=== PATIENT | female | born 1965 | race Caucasian/White ===

== ENCOUNTER 2017-05-25 10:33 | Emergency (ER) | payer MEDICAID ==
[~2017-05-25] VITALS: Ht 170.2 cm; Wt 70.3 kg
[2017-05-25 11:03] VITALS: BP 141/84
== END 2017-05-25 11:30 | disposition home or self-care (01) ==
LOC: ER 10:33
DX: M54.31 Sciatica, right side (principal); F17.210 Nicotine dependence, cigarettes, uncomplicated; Z90.710 Acquired absence of both cervix and uterus; Z88.0 Allergy status to penicillin

== ENCOUNTER 2017-08-03 10:48 | Emergency (ER) | payer MEDICAID, OTHER ==
[~2017-08-03] VITALS: Ht 170.2 cm; Wt 69.9 kg
[2017-08-03 10:59] VITALS: BP 116/91
[2017-08-03] MEDS ORDERED: KETOROLAC TROMETH 60MG/2ML VIAL IM ONE (11:45)
== END 2017-08-03 12:26 | disposition home or self-care (01) ==
LOC: ER 10:48
DX: S46.912A Strain of unspecified muscle, fascia and tendon at shoulder and upper arm level, left arm, initial encounter (principal); F17.210 Nicotine dependence, cigarettes, uncomplicated; Z88.0 Allergy status to penicillin; Z90.710 Acquired absence of both cervix and uterus; X50.3XXA Overexertion from repetitive movements, initial encounter; Y93.89 Activity, other specified; Y92.89 Other specified places as the place of occurrence of the external cause; Y99.8 Other external cause status
CPT/HCPCS: 73030; 96372; 99284; J1885

== ENCOUNTER 2017-09-29 15:01 | Emergency (ER) | payer OTHER ==
[~2017-09-29] VITALS: Ht 170.2 cm; Wt 68.5 kg
[2017-09-29 15:24] VITALS: BP 137/80
[2017-09-29] MEDS ORDERED: KETOROLAC TROMETH 60MG/2ML VIAL IM ONE (15:45)
== END 2017-09-29 16:04 | disposition home or self-care (01) ==
LOC: ER 15:01
DX: F41.1 Generalized anxiety disorder (principal); M54.5 Low back pain; F17.210 Nicotine dependence, cigarettes, uncomplicated; Z88.0 Allergy status to penicillin; Z90.710 Acquired absence of both cervix and uterus
CPT/HCPCS: 93005; 96372; 99284; J1885

== ENCOUNTER 2019-03-28 15:06 | Emergency (ER) | payer MEDICAID ==
[~2019-03-28] VITALS: Ht 167.6 cm; Wt 67.6 kg
[~2019-03-28 15:06] MED LIST: HYDR-4833 PO; LEVO500T21 PO
[2019-03-28 15:25] VITALS: BP 142/77
== END 2019-03-28 17:20 | disposition left against medical advice (07) ==
LOC: ER 15:06
DX: M54.5 Low back pain (principal); Z53.21 Procedure and treatment not carried out due to patient leaving prior to being seen by health care provider

== ENCOUNTER 2023-08-09 11:00 | Emergency (ER) | payer MEDICAID ==
[~2023-08-09] VITALS: Ht 170.2 cm; Wt 68.4 kg
[~2023-08-09 11:00] MED LIST changes: -LEVO500T21 PO; +LEVO500T31 PO
[2023-08-09 11:44] LABS: Basophils # (auto) 0 10 ^3/uL (0-0.2); Basophils % (auto) 0.3 % (0.0-2.0); Eosinophils # (auto) 0.1 10 ^3/uL (0-0.8); Eosinophils % (auto) 0.6 % (0.0-7.0); Hematocrit 41.3 % (36.0-46.0); Hemoglobin 13.9 g/dL (12.2-16.2); Lymphocytes # (auto) 1.4 10 ^3/uL (0.4-5.4); Lymphocytes % (auto) 16.7 % (10.0-50.0); Mean Corpuscular Hemoglobin 31.4 pg (28.0-32.0); Mean Corpuscular Hgb Conc. 33.8 g/dL (32.0-36.0); Monocytes # (auto) 0.3 10 ^3/uL (0-1.3); Monocytes % (auto) 3.6 % (0.0-12.0); Neutrophils # (auto) 6.5 10 ^3/uL (1.6-8.6); Neutrophils % (auto) 78.8 % (37.0-80.0); Red Blood Cells 4.44 10^6/uL (4.0-5.20); Red Cell Distribution Width 13.9 % (11.8-14.3); White Blood Cell 8.3 10^3/uL (4.4-10.8)
[2023-08-09 11:54] LABS: Anion Gap 7 (5-15); Carbon Dioxide 24 mmol/L (20-30); Chloride 109 mmol/L (98-107); Potassium 4.2 mmol/L (3.5-5.1); Sodium 140 mmol/L (136-145)
[2023-08-09 11:56] LABS: Calcium 9.5 mg/dL (8.5-10.1)
[2023-08-09 12:00] LABS: BUN/Creatinine Ratio 14.3 (10.0-20.0); Blood Urea Nitrogen 13 mg/dL (9-23); Glucose 140 mg/dL (74-106)
[2023-08-09 12:03] LABS: Urine Bacteria None Seen /hpf (None Seen)
[2023-08-09 12:14] LABS: Urine Blood Negative /uL (Negative); Urine Clarity Clear (Clear); Urine Color Yellow (Yellow); Urine Hyaline Cast FEW /lpf (0 - 2); Urine Mucus FEW (None Seen); Urine Protein, UAD 1+ (Negative); Urine Specific Gravity 1.043 (1.001-1.035); Urine Urobilinogen 3 mg/dL (Negative); Urine WBC 17 /hpf (0 - 5)
[2023-08-09 20:12] VITALS: BP 111/60; PULSE 70; RESP 14; TEMP 98.2; O2SAT 99
[2023-08-09] MEDS ORDERED: ONDANSETRON HCL 4 MG/2 ML VIAL IV PRN (22:15)
[2023-08-09] MEDS ORDERED: MORPHINE SULFATE INJ 2 MG/ml SYRG IV PRN (22:15)
[2023-08-09] MEDS ORDERED: HYDROcodone-ACET 5/325MG TAB PO PRN (22:15)
[2023-08-09] MEDS ORDERED: ACETAMINOPHEN 325 MG TAB PO PRN (22:15)
[2023-08-09] MEDS ORDERED: levoFLOXacin 500MG 100 ML IV SCH (23:00)
[2023-08-10] MEDS ORDERED: SODIUM CHLOR 0.9% PF (SALINE LOCK) 10ML VIAL/SYR IV SCH (06:00)
[2023-08-10] MEDS ORDERED: FAMOTIDINE (10MG/ML) 2ML VL IV SCH (10:00)
== END 2023-08-09 23:40 | disposition left against medical advice (07) ==
LOC: ER 11:00
DX: R10.10 Upper abdominal pain, unspecified (principal); F17.210 Nicotine dependence, cigarettes, uncomplicated; Z88.0 Allergy status to penicillin; Z90.710 Acquired absence of both cervix and uterus
CPT/HCPCS: 36415; 74176; 76705; 80048; 81001; 85025; 87086